=== PATIENT | male | born 1965 | race Caucasian/White ===

== ENCOUNTER 2020-07-27 05:25 | Day surgery (SDC) | payer OTHER ==
[2020-07-26 13:13] VITALS: BMI 23.7
[~2020-07-27 05:25] MED LIST: BUPIVACAINE HCL/PF 0.5% (5 MG/ML) 30 ML VIAL IJ ONE
[2020-07-27 08:14] LABS: BASO % 0.9 % (0-2.0); EOS % 3.9 % (0-4.5); HEMATOCRIT 43.6 % (35.4-49); HEMOGLOBIN 14.3 GM/dL (11.7-16.9); LYMPH % 39.9 % (8-40); MCH 28.7 pg (25.7-33.7); MCHC 32.8 g/dl (32.0-35.9); MEAN CELL VOLUME 87.5 fl (80-96); MEAN PLT VOLUME 9.3 fl (7.5-11.1); MONO % 9.5 % (3.8-10.2); NEUT % 45.8 % (42.8-82.8); PLATELET COUNT 306 K/MM3 (134-434); RBC 4.99 M/mm3 (4.00-5.60); RDW 14.2 % (11.9-15.9); WHITE BLOOD COUNT 6.5 K/mm3 (4.0-10.0)
[2020-07-27 08:19] LABS: INR 1.1 (0.83-1.09); PROTHROMBIN TIME (PATIENT) 13.3 SEC (9.7-13.0)
[2020-07-27 08:23] LABS: CALCIUM 8.7 mg/dL (8.5-10.1)
[2020-07-27 08:24] LABS: ALBUMIN 3.8 g/dl (3.4-5.0); BLOOD UREA NITROGEN 14.4 mg/dL (7-18)
[2020-07-27 08:28] LABS: BILIRUBIN,TOTAL 0.4 mg/dL (0.2-1)
[2020-07-27] MEDS ORDERED: MIDAZOLAM HCL 2 MG/2 ML SINGLE DOSE VIAL ONE (09:40)
[2020-07-27] MEDS ORDERED: ROCURONIUM BROMIDE 50 MG/5 ML SYRINGE ONE ×2 (09:40→11:00)
[2020-07-27] MEDS ORDERED: PROPOFOL 20 ML ONE ×2 (09:40)
[2020-07-27] MEDS ORDERED: DEXAMETHASONE SOD PHOSPHATE 4 MG/1 ML VIAL ONE (09:40)
[2020-07-27] MEDS ORDERED: KETOROLAC TROMETHAMINE 30 MG/1 ML VIAL ONE (09:40)
[2020-07-27] MEDS ORDERED: BUPIVACAINE HCL 100 ML ONE (09:41)
[2020-07-27] MEDS ORDERED: ceFAZolin 2 GRAM PREMIX BAG IVPB ONE (10:15)
[2020-07-27] MEDS ORDERED: NEOSTIGMINE METHYLSULFATE 0.5 MG/ML - 10 ML MDV ONE (11:43)
[2020-07-27] MEDS ORDERED: BUPIVACAINE HCL/PF 0.5% (5 MG/ML) 30 ML VIAL IJ ONE (11:46)
[2020-07-27] MEDS ORDERED: oxyCODONE HCL 5 MG TABLET PO PRN (12:15)
[2020-07-27] MEDS ORDERED: ONDANSETRON 4 MG/2 ML VIAL IVPUSH PRN (12:15)
[2020-07-27] MEDS ORDERED: ACETAMINOPHEN 1000 MG/100 ML VIAL (NON FORMULARY) IVPB PRN (12:16)
[2020-07-27] MEDS ORDERED: ACETAMINOPHEN INJECTION 100 ML IVPB ONE (12:57)
[2020-07-27 15:43] VITALS: BP 135/88; PULSE 79; TEMP 98.8
== END 2020-07-27 15:45 | disposition home or self-care (01) ==
LOC: JASU-SURG 05:25
PROVIDERS: ATTEND Surgery
PROC: 8E0W4CZ Robotic Assisted Procedure of Trunk Region, Percutaneous Endoscopic Approach (ICD-10-PCS; 2020-07-27)
PROC: 0WUF4JZ Supplement Abdominal Wall with Synthetic Substitute, Percutaneous Endoscopic Approach (ICD-10-PCS; 2020-07-27)
PROC: 8E0W4CZ Robotic Assisted Procedure of Trunk Region, Percutaneous Endoscopic Approach (ICD-10-PCS; 2020-07-27)
PROC: 0WUF4JZ Supplement Abdominal Wall with Synthetic Substitute, Percutaneous Endoscopic Approach (ICD-10-PCS; principal; 2020-07-27 09:30)
DX: K42.9 Umbilical hernia without obstruction or gangrene (principal); K42.0 Umbilical hernia with obstruction, without gangrene
CPT/HCPCS: 49653; S2900; 36415; 80053; 85025; 85610; 93005; 93010; 94760; J0131